=== PATIENT | female | born 1935 | race Caucasian/White ===

== ENCOUNTER → 2016-04-30 | Outpatient (CLI) | payer MEDICARE, OTHER ==
[2016-04-30 15:00] LABS: WHITE BLOOD COUNT 7.98 10^3uL (4.0-11.0)
[2016-04-30 15:01] LABS: BASOPHILS % (AUTO) 1 % (0-2); EOSINOPHILS # (AUTO) 0.2 10^3uL; EOSINOPHILS % (AUTO) 2 % (0-4); LYMPHOCYTES # (AUTO) 2.5 X10^3; MEAN CORPUSCULAR VOLUME 97 FL (80-100); MEAN PLATELET VOLUME 9.1 FL (6.0-9.5); MONOCYTES # (AUTO) 0.6 X10^3; MONOCYTES % (AUTO) 8 % (3-11); NEUTROPHILS # (AUTO) 4.7 X10^3; NEUTROPHILS % (AUTO) 58 % (51-67); PLATELET COUNT 261 10^3uL (150-450)
[2016-04-30 15:13] LABS: ALBUMIN 4.4 g/dL (3.4-5.0); ANION GAP 19.5 MEQ/L (3-15); CALCULATED IONIZED CALCIUM 4.1 mg/dL (3.8-4.6); TOTAL PROTEIN 7.9 g/dL (6.4-8.5)
== END ==
LOC: LAB 14:46
PROVIDERS: ATTEND Obstetrics & Gynecology Gynecologic Oncology
DX: C51.0 Malignant neoplasm of labium majus (principal)
CPT/HCPCS: 36415; 80053; 85025

== ENCOUNTER → 2016-05-01 | Outpatient (CLI) | payer MEDICARE, OTHER | LOC: RAD 08:28 | PROVIDERS: ATTEND Obstetrics & Gynecology Gynecologic Oncology | DX: C51.0 Malignant neoplasm of labium majus (principal) | CPT/HCPCS: 74178; Q9967 ==

== ENCOUNTER → 2016-06-10 | Outpatient (CLI) | payer MEDICARE, OTHER | LOC: RAD 12:51 | PROVIDERS: ATTEND Family Medicine | DX: Z12.31 Encounter for screening mammogram for malignant neoplasm of breast (principal) ==